=== PATIENT | male | born 1980 | race Caucasian/White ===

== ENCOUNTER 2020-02-06 20:19 | Emergency (ER) | payer OTHER ==
[~2020-02-06] VITALS: Ht 172.7 cm; Wt 88.2 kg
[2020-02-06 21:03] VITALS: BP 135/83; PULSE 72; TEMP 98
== END 2020-02-06 21:25 | disposition left against medical advice (07) ==
LOC: COL.ER 20:19
DX: R42 Dizziness and giddiness (principal); Z53.29 Procedure and treatment not carried out because of patient's decision for other reasons

== ENCOUNTER → 2020-06-03 | Outpatient (CLI) | payer OTHER | LOC: COL.RAD 10:39 | DX: M54.2 Cervicalgia (principal); Z85.59 Personal history of malignant neoplasm of other urinary tract organ ==

== ENCOUNTER → 2020-07-19 | Outpatient (CLI) | payer OTHER | LOC: COL.RAD 13:18 | DX: M54.17 Radiculopathy, lumbosacral region (principal) ==

== ENCOUNTER → 2021-02-28 | Outpatient (CLI) | payer OTHER | LOC: COL.RAD 01-31 14:00 | DX: G43.409 Hemiplegic migraine, not intractable, without status migrainosus (principal) | CPT/HCPCS: A9585 ==